=== PATIENT | female | born 1970 | race Caucasian/White ===

== ENCOUNTER → 2021-08-09 14:05 | Outpatient (BNVA) | payer MEDICAID, SELFPAY | PROVIDERS: Referring Provider Family Medicine; Visit Provider Orthopaedic Surgery | DX: M47.896 Other spondylosis, lumbar region (principal); M47.897 Other spondylosis, lumbosacral region; M47.892 Other spondylosis, cervical region; M54.5 Low back pain; M54.2 Cervicalgia | CPT/HCPCS: 72050; 72110 ==

== ENCOUNTER 2021-08-30 15:42 | Outpatient (CLI) | payer MEDICAID, SELFPAY ==
--- NOTE | 2021-08-30 16:00 | MR_ITS ---
WS: [id number] MRI CERVICAL SPINE NONCONTRAST TECHNIQUE: Sagittal T1, T2 and STIR imaging. Axial T2, gradient, and fiesta imaging. CLINICAL INFORMATION: M54.9 - Dorsalgia, unspecified COMPARISON: None. FINDINGS: Straightening with slight reversal normal cervical lordosis. Minimal disc bulging C3-C4, C4-C5, C5-C6 . Cord signal is normal. No high-grade central canal stenosis. C2-C3: Normal. C3-C4: Mild disc bulging and osteophytic ridging. Mild facet arthropathy. Mild left foraminal narrowi ng. Spinal canal is patent. C4-C5: Disc osteophytic ridging with mild bilateral proximal bony foraminal narrowing. Spinal canal i s patent. Mild facet arthropathy. C5-C6: Disc osteophyte complex with endplate ridging. Moderate left and mild right bony foraminal oscar rowing. Mild facet arthropathy. Spinal canal is patent. C6-C7: Normal. C7-T1: Normal Small retention cyst left maxillary sinus. Visualized brain stem structures: Normal. Prevertebral soft tissues: Normal. MR/MR cervical spin wo con* [id number] IMPRESSION: 1. Straightening with slight reversal normal cervical lordosis. 2. Disc osteophyte complex endplate ridging worse at C5-C6. Moderate left C5-C 6 bony foraminal narrowing. Mild right bony foraminal narrowing. 3. Mild bilateral bony foraminal narrowing C4-5 right greater than left. 4. Mild left C3-C4 bony foraminal narrowing. 5. Mild facet arthropathy C4-C5 and C5-C6. 6. No significant central canal stenosis. Cord signal is normal.
--- NOTE | 2021-08-30 16:45 | MR_ITS ---
WS: [id number] MRI LUMBAR SPINE NONCONTRAST TECHNIQUE: Sagittal T1, T2 and STIR imaging. Axial T1 and T2 imaging. CLINICAL INFORMATION: M54.9 - Dorsalgia, unspecified COMPARISON: None. FINDINGS: Minimal lumbar curve. No acute compression. No high-grade central canal stenosis. Tarlov cysts in the sacrum. Mild degenerative disc disease L4-5. L1-L2: Normal. L2-L3: Moderate facet arthropathy. Tiny left proximal foraminal protrusion with mild left foraminal narrowing. L3-L4: Left eccentric disc osteophytic ridging with mild left foraminal narrowing and a tiny far late ral protrusion. Right foramen is patent. Moderate facet arthropathy. L4-L5: Mild disc bulging and osteophytic ridging. Mild disc desiccation. Mild right and no significan t left foraminal narrowing. Moderate facet arthropathy. L5-S1: No significant disc bulging. Spinal canal and foramen are patent. Mild facet arthropathy. Peripheral displacement of the cauda equina nerve rootlets at L4 and L5 compatible with arachnoiditis Visualized pelvic bony structures: Normal. Paravertebral soft tissues: Normal. MR/MR lumbar spine wo con* [id number] IMPRESSION: 1. Mild lumbar curve. No acute compression. No high-grade central canal stenos is. 2. Tiny left proximal foraminal protrusions at left L2-3 with slight encroachm ent on the exiting left L2 nerve root 3. Tiny left lateral protrusion L3-4 slightly contacts the far exiting left L3 nerve root. 4. Moderate facet arthropathy L2-L3, L3-L4, and L4-L5. 5. Peripheral displacement of the cauda equina nerve rootlets at L4 and L5 com patible with arachnoiditis
== END 2021-08-30 15:43 | disposition home or self-care (01) ==
PROVIDERS: PCP Family Medicine; Visit Provider Orthopaedic Surgery
DX: M51.26 Other intervertebral disc displacement, lumbar region (principal); M47.816 Spondylosis without myelopathy or radiculopathy, lumbar region; M25.78 Osteophyte, vertebrae; M47.812 Spondylosis without myelopathy or radiculopathy, cervical region
CPT/HCPCS: 72141; 72148